=== PATIENT | male | born 1950 | race Caucasian/White ===

== ENCOUNTER 2019-11-17 18:59 | Emergency (ER) | payer SELFPAY ==
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
[2019-11-17 20:38] VITALS: BP 161/78
== END 2019-11-17 20:37 | disposition home or self-care (01) ==
LOC: ED 18:59
DX: M54.9 Dorsalgia, unspecified (principal); V49.00XA Driver injured in collision with unspecified motor vehicles in nontraffic accident, initial encounter; Y92.410 Unspecified street and highway as the place of occurrence of the external cause; I48.91 Unspecified atrial fibrillation; I10 Essential (primary) hypertension; E78.5 Hyperlipidemia, unspecified; E11.9 Type 2 diabetes mellitus without complications
CPT/HCPCS: 99281